=== PATIENT | male | born 1945 | race Caucasian/White ===

== ENCOUNTER 2019-09-02 22:24 | Emergency (ER) | payer BC, MEDICARE ==
[~2019-09-02] VITALS: Ht 172.7 cm; Wt 88.5 kg
[~2019-09-02 22:24] MED LIST: AUGMENTIN 875875 MG PO; COLACE 100 MG100 MG PO; FAMOTIDINE; IBUPROFEN 800800 M1 PO; LOPRESSOR 50 MG50 M1 PO; LORTAB 5 MG/5001 TA1 PO
[2019-09-02] MEDS ORDERED: KEFLEX500 M2 PO (22:35)
[2019-09-02] MEDS ORDERED: TYLENOL WITH CO1 TA1 PO (22:36)
[2019-09-02] MEDS ORDERED: PENICILLIN VK500 MG PO (22:41)
[2019-09-02] MEDS ORDERED: HYDROCODON-ACE1 EAC8 PO (22:41)
[2019-09-02 22:55] VITALS: BP 149/76
== END 2019-09-02 22:58 | disposition home or self-care (01) ==
LOC: M.ERS 22:24
DX: K08.89 Other specified disorders of teeth and supporting structures (principal); R22.0 Localized swelling, mass and lump, head; Z90.49 Acquired absence of other specified parts of digestive tract; Z95.5 Presence of coronary angioplasty implant and graft